=== PATIENT | female | born 1955 | race Caucasian/White ===

== ENCOUNTER 2017-10-18 15:50 | Emergency (ER) | payer BC ==
[~2017-10-18] VITALS: Ht 162.6 cm; Wt 83.9 kg
[~2017-10-18 15:50] MED LIST: CHOL10002 PO; INSULANPEN; LISI5 PO; METF500 PO; NITR.6SL SL; PRAV20 PO
[2017-10-18] MEDS ORDERED: ISOMON20 PO (16:14)
[2017-10-18] MEDS ORDERED: METO25 PO (16:15)
[2017-10-18] MEDS ORDERED: INSULANPEN ×2 (16:15)
[2017-10-18] MEDS ORDERED: TOCO1000 (16:16)
[2017-10-18] MEDS ORDERED: METF500 PO (16:16)
[2017-10-18] MEDS ORDERED: CHOL10002 (16:16)
[2017-10-18] MEDS ORDERED: PRAV20 PO (16:16)
[2017-10-18] MEDS ORDERED: Vitamin B Comple1 EA (16:17)
[2017-10-18] MEDS ORDERED: ALFALFA250 MG (16:17)
[2017-10-18] MEDS ORDERED: ASPI325 (16:17)
[2017-10-18] MEDS ORDERED: COQ1050 MG (16:17)
[2017-10-18 16:38] LABS: BASOPHILS ABSOLUTE AUTO 0.04 K/mm3 (0.00-0.23); BASOPHILS PERCENT AUTO 0 % (0-2); EOSINOPHILS ABSOLUTE AUTO 0.09 K/mm3 (0.00-0.68); EOSINOPHILS PERCENT AUTO 1 % (0-6); Hematocrit 39.5 % (33.0-51.0); Hemoglobin 13.4 g/dL (11.5-16.0); IMMATURE GRAN ABSOLUTE AUTO 0.05 K/mm3 (0.00-0.10); IMMATURE GRAN PERCENT AUTO 0 % (0-1); LYMPHOCYTES ABSOLUTE AUTO 1.51 K/mm3 (0.84-5.20); LYMPHOCYTES PERCENT AUTO 9 % (21-46); MONOCYTES ABSOLUTE AUTO 1.26 K/mm3 (0.16-1.47); MONOCYTES PERCENT AUTO 7 % (4-13); Mean Corpuscular HGB 29.1 pg (26.0-34.0); Mean Corpuscular HGB Conc 33.9 g/dL (31.5-36.5); Mean Corpuscular Volume 86 fL (80-100); Mean Platelet Volume 10.9 fL (9.1-12.4); NEUTROPHILS ABSOLUTE AUTO 13.99 K/mm3 (1.96-9.15); NEUTROPHILS PERCENT AUTO 83 % (41-73); Platelet Count 242 K/mm3 (150-400); RDW Coefficient Variation 12.8 % (11.7-14.2); RDW Standard Deviation 40.1 fL (35.1-46.3); Red Blood Cell Count 4.61 M/mm3 (3.80-5.20); White Blood Cell Count 16.94 K/mm3 (4.00-11.30)
[2017-10-18 16:43] LABS: Anion Gap 10 mmol/L (6-16); Blood Urea Nitrogen 17 mg/dL (8-24); Bun/Creatinine Ratio 27.2 (12.0-20.0); CO2, Blood 23 mmol/L (21-32); Calcium, Blood 9.4 mg/dL (8.5-10.1); Chloride, Blood 99 mmol/L (98-108); Creatinine, Blood 0.63 mg/dL (0.40-1.00); Glomerular Filtration Rate >60 (60-); Glucose, Blood 375 mg/dL (70-99); Potassium, Blood 4.3 mmol/L (3.5-5.5); Sodium, Blood 132 mmol/L (136-145)
[2017-10-18] MEDS ORDERED: Norco 10-325 T1 EACH PO (16:54)
[2017-10-18] MEDS ORDERED: CEPH500 PO (16:54)
[2017-10-18] MEDS ORDERED: Bactrim Ds Tab1 EACH PO (16:54)
== END 2017-10-18 19:12 | disposition home or self-care (01) ==
LOC: ER 15:50
PROVIDERS: Emergency Medicine
DX: L03.114 Cellulitis of left upper limb (principal); E11.9 Type 2 diabetes mellitus without complications; Z88.0 Allergy status to penicillin; Z91.048 Other nonmedicinal substance allergy status; Z91.040 Latex allergy status; Z79.4 Long term (current) use of insulin; Z79.899 Other long term (current) drug therapy; Z79.82 Long term (current) use of aspirin; Z87.891 Personal history of nicotine dependence; Z85.3 Personal history of malignant neoplasm of breast
CPT/HCPCS: 36415; 80048; 83605; 85025; 87040; 93971; 96365; 96366; 99284; J3370; J7030; J7050

== ENCOUNTER → 2018-02-20 | Outpatient (CLI) | payer BC ==
[~2018-02-20] MED LIST changes: +ALFALFA250 MG; +ASPI325; +Bactrim Ds Tab1 EACH PO; +CEPH500 PO; +CHOL10002; +COQ1050 MG; +ISOMON20 PO; +METO25 PO; +Norco 10-325 T1 EACH PO; +TOCO1000; +Vitamin B Comple1 EA
[2018-02-20 09:43] LABS: Source, Urine Clean Catch
[2018-02-20 12:15] LABS: Bilirubin, Urine Neg (Neg); Blood, Urine Neg (Neg); Glucose Qualitative, Urine Neg (Neg); Ketones, Urine Neg (Neg); Leukocyte Esterase, Urine Neg (Neg); Nitrite, Urine Neg (Neg); Protein, Urine Neg (Neg); Specific Gravity, Urine 1.015 (1.003-1.022); Urobilinogen, Urine NORM (Normal)
[2018-02-20 12:26] LABS: Appearance, Urine Clear (Clear); Color, Urine Yellow (P-Yellow)
== END ==
LOC: LAB SHORT 09:40 → LAB 09:40
PROVIDERS: Internal Medicine
DX: R30.0 Dysuria (principal)
CPT/HCPCS: 81003

== ENCOUNTER → 2020-11-14 | Outpatient (CLI) | payer MEDICARE, BC ==
[2020-11-14 11:02] LABS: Source, Urine Clean Catch
[2020-11-14 12:37] LABS: Bilirubin, Urine Neg (Neg); Blood, Urine 5+ (Neg); Glucose Qualitative, Urine 4+ (Neg); Ketones, Urine Neg (Neg); Leukocyte Esterase, Urine 1+ (Neg); Nitrite, Urine Neg (Neg); Protein, Urine 2+ (Neg); Urobilinogen, Urine NORM (Normal)
[2020-11-14 13:04] LABS: Appearance, Urine Hazy (Clear); Bacteria Rare /hpf; Color, Urine Yellow (P-Yellow); Red Blood Cells, Urine TNTC /hpf (0-2); Squamous Epithelial Cells Few /hpf (Few)
== END | disposition home or self-care (01) ==
LOC: LAB SHORT 10:59 → PLD 10:59
PROVIDERS: Internal Medicine
DX: R30.0 Dysuria (principal)
CPT/HCPCS: 81001; 87077; 87086; 87186

== ENCOUNTER → 2021-08-25 | Outpatient (CLI) | payer MEDICARE, BC ==
[2021-08-25 08:56] LABS: Source, Urine Clean Catch
[2021-08-25 11:23] LABS: Appearance, Urine Clear (Clear); Bilirubin, Urine Neg (Neg); Blood, Urine Neg (Neg); Color, Urine Yellow (P-Yellow); Glucose Qualitative, Urine 4+ (Neg); Ketones, Urine Neg (Neg); Leukocyte Esterase, Urine Neg (Neg); Nitrite, Urine Neg (Neg); Protein, Urine Neg (Neg); Urobilinogen, Urine NORM (Normal); pH, Urine 6.5 (5.0-8.0)
== END | disposition home or self-care (01) ==
LOC: LAB 08:49 → LAB SHORT 08:49
PROVIDERS: Internal Medicine
DX: R31.9 Hematuria, unspecified (principal)
CPT/HCPCS: 81003

== ENCOUNTER 2023-06-08 17:33 | Emergency (ER) | payer MEDICARE, BC ==
[~2023-06-08] VITALS: Ht 167.6 cm; Wt 81.7 kg
[2023-06-08 17:51] VITALS: BP 149/84
== END 2023-06-08 19:45 | disposition home or self-care (01) ==
LOC: ER 17:33
DX: S00.01XA Abrasion of scalp, initial encounter (principal); R21 Rash and other nonspecific skin eruption; W18.30XA Fall on same level, unspecified, initial encounter; Z88.0 Allergy status to penicillin; Z91.040 Latex allergy status; Z91.09 Other allergy status, other than to drugs and biological substances; Z79.4 Long term (current) use of insulin; Z79.899 Other long term (current) drug therapy; Z79.82 Long term (current) use of aspirin; Z79.2 Long term (current) use of antibiotics; E11.9 Type 2 diabetes mellitus without complications; Z87.891 Personal history of nicotine dependence
CPT/HCPCS: 70450; 99283-25

== ENCOUNTER 2024-04-01 11:51 | Emergency (ER) | payer OTHER, MEDICARE, BC ==
[~2024-04-01] VITALS: Ht 162.6 cm; Wt 74.4 kg
[2024-04-01 13:00] VITALS: BP 111/62
== END 2024-04-01 13:16 | disposition home or self-care (01) ==
LOC: ER 11:51
DX: M54.2 Cervicalgia (principal); E11.9 Type 2 diabetes mellitus without complications; V40.5XXA Car driver injured in collision with pedestrian or animal in traffic accident, initial encounter; Z87.891 Personal history of nicotine dependence; Z79.899 Other long term (current) drug therapy; Z79.82 Long term (current) use of aspirin; Z79.4 Long term (current) use of insulin; Z88.0 Allergy status to penicillin; Z91.040 Latex allergy status; Z91.048 Other nonmedicinal substance allergy status
CPT/HCPCS: 70450; 72125; 99284-25

== ENCOUNTER 2024-10-18 06:32 | Day surgery (SDC) | payer OTHER, MEDICARE, BC ==
[~2024-10-18] VITALS: Ht 162.6 cm; Wt 73.7 kg
[~2024-10-18 06:32] MED LIST changes: +Lactated Ringer's 1,000 ML IV ONE; +NS 500 ML IV ONE
[2024-10-18] MEDS ORDERED: FentaNYL Citrate 50 MCG/ML 2 ML Injection ONE (07:07)
[2024-10-18] MEDS ORDERED: propofoL 20 ML IV ONE (07:07)
[2024-10-18] MEDS ORDERED: BASAGLAR K100 UNIT/8 (07:11)
[2024-10-18] MEDS ORDERED: CARBAMAZEPINE100 M6 PO (07:19)
[2024-10-18] MEDS ORDERED: OZEMPIC0.25 MG/02 (07:19)
[2024-10-18] MEDS ORDERED: Prinivil10 MG PO (07:20)
[2024-10-18] MEDS ORDERED: HYDCHL25 (07:20)
[2024-10-18] MEDS ORDERED: NS 500 ML IV ONE (07:20)
[2024-10-18] MEDS ORDERED: JARDIANCE25 MG PO (07:21)
[2024-10-18] MEDS ORDERED: HYDCHL25 PO (07:21)
[2024-10-18] MEDS ORDERED: CeFAZolin Sodium 2,000 MG VIAL ONE (07:44)
[2024-10-18] MEDS ORDERED: Ondansetron HCl 2 MG / ML 2ML Vial ONE (07:58)
[2024-10-18] MEDS ORDERED: Dexamethasone Sod Phos 10 MG/ML 1ML VIAL ONE (07:58)
[2024-10-18] MEDS ORDERED: Lidocaine HCl 2% 10 ML SDA INJ ONE (08:03)
[2024-10-18] MEDS ORDERED: Lidocaine HCl 2% 10 ML SDA ONE (08:07)
[2024-10-18 09:54] VITALS: BP 136/73
== END 2024-10-18 09:19 | disposition home or self-care (01) ==
LOC: ORSCSDS 06:32
PROVIDERS: Orthopaedic Surgery
PROC: 01N40ZZ Release Ulnar Nerve, Open Approach (ICD-10-PCS; principal; 2024-10-18 08:00)
PROC: 01N54ZZ Release Median Nerve, Percutaneous Endoscopic Approach (ICD-10-PCS; principal; 2024-10-18 08:00)
DX: G56.02 Carpal tunnel syndrome, left upper limb (principal); G56.22 Lesion of ulnar nerve, left upper limb; E11.9 Type 2 diabetes mellitus without complications; I10 Essential (primary) hypertension; Z79.4 Long term (current) use of insulin; Z79.84 Long term (current) use of oral hypoglycemic drugs; Z79.85 Long-term (current) use of injectable non-insulin antidiabetic drugs; Z79.899 Other long term (current) drug therapy; Z87.891 Personal history of nicotine dependence
CPT/HCPCS: 82947; J0690; J1100; J2003; J2405; J2704; J3010; J7040; J7120